=== PATIENT | male | born 1985 | race Caucasian/White ===

== ENCOUNTER 2020-12-02 13:56 | Emergency (ER) | payer OTHER ==
[~2020-12-02] VITALS: Ht 180.3 cm; Wt 118.2 kg
[2020-12-02 14:00] VITALS: Ht 180.3 cm; Wt 118.2 kg
[2020-12-02 14:58] LABS: BASOPHILS 0.1 % (0-2); EOSINOPHILS 0.3 % (0-7); HEMATOCRIT 48.1 % (42.0-54.0); HEMOGLOBIN 16.3 g/dL (13.5-17.5); IMMATURE GRANULOCYTES 0.3 % (0-5); LYMPHOCYTE ABS# 1.51 10x3/uL (1.32-3.57); LYMPHOCYTES 13.9 % (15-50); MCH 30.2 pg (26.0-34.0); MCHC 33.9 g/dL (31.0-37.0); MCV 89.1 fL (80.0-100.0); MEAN PLATELET VOLUME 11.1 fL (7.4-10.4); MONOCYTES 3.8 % (2-11); NEUTROPHIL ABS# 8.87 10x3/uL (1.78-5.38); NEUTROPHILS 81.6 % (40-80); PLATELET COUNT 184 10x3/uL (130-400); WBC 10.9 10x3/uL (4.8-10.8)
[2020-12-02 15:18] LABS: CALC OSMOLALITY 276 mosm/kg (275-300); CALCIUM 8.8 mg/dL (8.5-10.1); CARBON DIOXIDE 30.1 mmol/L (21.0-32.0); CHLORIDE - SERUM 101 mmol/L (98-107); CREATININE - SERUM 0.9 mg/dL (0.6-1.3); GLUCOSE 133 mg/dL (74-106); POTASSIUM - SERUM 3.9 mmol/L (3.5-5.1); SODIUM 138 mmol/L (136-145); UREA NITROGEN 10 mg/dL (7-18); eGFR NON AFRICAN AMERICAN > 90 mL/min (90-120)
[2020-12-02 15:24] LABS: ALKALINE PHOSPHATASE 81 U/L (30-120); ALT (SGPT) 46 U/L (10-68); AMYLASE - SERUM 50 U/L (25-115); BILIRUBIN - TOTAL 0.67 mg/dL (0.2-1.3); LIPASE 91 U/L (73-393); PROTEIN - SERUM 7.8 g/dL (6.4-8.2)
[2020-12-02] MEDS ORDERED: BENTYL 20 MG TA20 MG PO (16:40)
[2020-12-02] MEDS ORDERED: MAALOX ADVANCE355 ML PO (16:40)
[2020-12-02] MEDS ORDERED: OMEPRAZOLE20 M1 PO (16:40)
[2020-12-02] MEDS ORDERED: ZOFRAN ODT4 MG/UDTAB PO (16:40)
== END 2020-12-02 17:08 | disposition home or self-care (01) ==
LOC: D.ER 13:56
PROVIDERS: Emergency Medicine
DX: K29.70 Gastritis, unspecified, without bleeding (principal); R10.10 Upper abdominal pain, unspecified; R11.2 Nausea with vomiting, unspecified; F12.20 Cannabis dependence, uncomplicated